=== PATIENT | male | born 1935 | race Caucasian/White ===

== ENCOUNTER 2021-02-07 05:38 | Day surgery (SDC) | payer OTHER ==
[2021-02-05 17:12] VITALS: BMI 21.6
[2021-02-07] MEDS ORDERED: KETOROLAC TROMETHAMINE 10 MG TABLET PO PRN (08:26)
[2021-02-07] MEDS ORDERED: DOCUSATE SODIUM 100 MG CAPSULE (FP) PO PRN (08:37)
[2021-02-07] MEDS ORDERED: DEXTROSE 5% IVPB SCH (10:00)
[2021-02-07] MEDS ORDERED: WATER IVPB SCH (10:00)
[2021-02-07] MEDS ORDERED: CEFAZOLIN IVPB SCH (10:00)
[2021-02-07] MEDS ORDERED: ONDANSETRON 4 MG/2 ML VIAL IVPUSH PRN (13:53)
[2021-02-07] MEDS ORDERED: LACTATED RINGERS SOLUTION 1,000 ML IV SCH (14:00)
[2021-02-07] MEDS ORDERED: PROPOFOL 20 ML ONE ×2 (14:07→15:10)
[2021-02-07] MEDS ORDERED: ceFAZolin SODIUM 1 GM VIAL IVPB ONE (14:20)
[2021-02-07] MEDS ORDERED: MEPERIDINE HCL 25 MG/ML VIAL ONE (15:39)
[2021-02-07] MEDS ORDERED: MEPERIDINE HCL 25 MG/ML VIAL IVPUSH ONE (17:47)
[2021-02-07] MEDS: predniSONE 5 MG TABLET (UD) PO SCH (18:57)
[2021-02-07] MEDS: NIFEdipine E.R. 30 MG TABLET PO SCH (18:57)
[2021-02-07] MEDS: FINASTERIDE 5 MG TABLET (FP) PO SCH (18:59)
[2021-02-07] MEDS ORDERED: DEXTROSE 5%-WATER 100 ML IVPB ONE (21:10)
[2021-02-07] MEDS ORDERED: ceFAZolin SODIUM 1 GM VIAL ONE (21:10)
[2021-02-07] MEDS ORDERED: traZODone HCL 100 MG TABLET (FP) PO SCH (22:00)
[2021-02-07] MEDS: CEFAZOLIN IVPB SCH (22:45)
[2021-02-07] MEDS: DEXTROSE 5% IVPB SCH (22:45)
[2021-02-07] MEDS: WATER IVPB SCH (22:45)
[2021-02-08] MEDS ORDERED: ceFAZolin SODIUM 1 GM VIAL ONE (06:17)
[2021-02-08] MEDS ORDERED: DEXTROSE 5%-WATER 100 ML IVPB ONE (06:18)
[2021-02-08] MEDS: DEXTROSE 5% IVPB SCH (06:25)
[2021-02-08] MEDS: WATER IVPB SCH (06:25)
[2021-02-08] MEDS: CEFAZOLIN IVPB SCH (06:25)
[2021-02-08 07:50] LABS: HEMOGLOBIN 12.7 GM/dL (11.7-16.9); MCH 29.6 pg (25.7-33.7); MCHC 33.4 g/dl (32.0-35.9); MEAN CELL VOLUME 88.6 fl (80-96); PLATELET COUNT 83 10^3/uL (134-434); RBC 4.29 M/mm3 (4.00-5.60); RDW 16.3 % (11.9-15.9); WHITE BLOOD COUNT 3.5 K/mm3 (4.0-10.0)
[2021-02-08 08:07] LABS: CALCIUM 8.1 mg/dL (8.5-10.1)
[2021-02-08 08:08] LABS: BLOOD UREA NITROGEN 16.7 mg/dL (7-18)
[2021-02-08 08:11] LABS: CREATININE 0.7 mg/dL (0.55-1.3)
[2021-02-08] MEDS: NIFEdipine E.R. 30 MG TABLET PO SCH (08:59)
[2021-02-08] MEDS: predniSONE 5 MG TABLET (UD) PO SCH (09:01)
[2021-02-08] MEDS: FINASTERIDE 5 MG TABLET (FP) PO SCH (09:04)
[2021-02-08 14:50] VITALS: BP 113/62; PULSE 60; TEMP 98.4
== END 2021-02-08 18:11 | disposition home or self-care (01) ==
LOC: JASUSAT 05:38 → J8W 18:06 → JASUSAT 02-08 18:11
PROVIDERS: ATTEND Urology
PROC: 30233R1 Transfusion of Nonautologous Platelets into Peripheral Vein, Percutaneous Approach (ICD-10-PCS; 2021-02-07)
PROC: 0VT08ZZ Resection of Prostate, Via Natural or Artificial Opening Endoscopic (ICD-10-PCS; principal; 2021-02-07 13:30)
DX: N40.1 Benign prostatic hyperplasia with lower urinary tract symptoms (principal); N13.8 Other obstructive and reflux uropathy; D69.6 Thrombocytopenia, unspecified
CPT/HCPCS: 36415; 36430; 36511; 80048; 85027; 86850; 86900; 86901; 88305-TC; 94760; P9034; P9038

== ENCOUNTER 2022-01-22 05:19 | Day surgery (SDC) | payer OTHER, BC ==
[2022-01-21 10:48] VITALS: BMI 21.9
[2022-01-22] MEDS ORDERED: PROPOFOL 40 ML ONE (07:49)
[2022-01-22] MEDS ORDERED: FENTANYL CITRATE/PF 50 MCG/ML VIAL ONE (07:49)
[2022-01-22] MEDS ORDERED: ETOMIDATE 20 MG/10 ML VIAL IVPUSH ONE (07:50)
[2022-01-22] MEDS ORDERED: LIDOCAINE HCL/PF 2% SDV 5ML VIAL ONE (07:50)
[2022-01-22] MEDS ORDERED: PHENYLEPHRINE HCL 10 MG/1 ML SINGLE DOSE VIAL ONE (07:52)
[2022-01-22] MEDS ORDERED: ePHEDrine SULFATE 50 MG/1 ML AMPULE ONE (07:56)
[2022-01-22] MEDS ORDERED: SODIUM CHLORIDE 0.9% P/F 10 ML VIAL IJ ONE ×2 (07:56→08:18)
[2022-01-22] MEDS ORDERED: ceFAZolin SODIUM 1 GM VIAL ONE (08:18)
[2022-01-22] MEDS ORDERED: ceFAZolin SODIUM 1 GM VIAL IVPB ONE (08:20)
[2022-01-22] MEDS ORDERED: ONDANSETRON 4 MG/2 ML VIAL IVPUSH PRN (09:00)
[2022-01-22] MEDS ORDERED: ACETAMINOPHEN 325 MG TABLET (FP) PO PRN (09:00)
[2022-01-22] MEDS ORDERED: LACTATED RINGERS SOLUTION 1,000 ML IV SCH (09:00)
[2022-01-22 11:09] VITALS: RESP 18
[2022-01-22 11:25] VITALS: BP 124/76; PULSE 81; TEMP 97.5
== END 2022-01-22 12:10 | disposition home or self-care (01) ==
LOC: JASU-SURG 05:19
PROVIDERS: ATTEND Urology
PROC: BV49ZZZ Ultrasonography of Prostate and Seminal Vesicles (ICD-10-PCS; 2022-01-22)
PROC: 0VB03ZX Excision of Prostate, Percutaneous Approach, Diagnostic (ICD-10-PCS; principal; 2022-01-22 08:00)
DX: C61 Malignant neoplasm of prostate (principal)
CPT/HCPCS: 76998-TC; 88305-TC; 94760

== ENCOUNTER 2022-01-22 15:38 | Emergency (ER) | payer OTHER, BC ==
[2022-01-22 15:44] VITALS: BP 121/67; PULSE 89; RESP 18; TEMP 98.9; BMI 21.7
[2022-01-22 17:17] LABS: HEMATOCRIT 40.8 % (35.4-49); HEMOGLOBIN 13.2 GM/dL (11.7-16.9); MCH 28.2 pg (25.7-33.7); MCHC 32.4 g/dl (32.0-35.9); MEAN PLT VOLUME 10.6 fl (7.5-11.1); PLATELET COUNT 87 10^3/uL (134-434); RDW 16.8 % (11.9-15.9); WHITE BLOOD COUNT 5.2 K/mm3 (4.0-10.0)
[2022-01-22 17:20] LABS: EPI CELLS 3 /uL (0-25.1); HYALINE CASTS 0 /uL (0-3.1); URINE APPEARANCE CLOUDY; URINE BACTERIA 3 /uL (0-1359); URINE BILIRUBIN NEGATIVE (NEGATIVE); URINE COLOR YELLOW; URINE GLUCOSE (UA) NEGATIVE (NEGATIVE); URINE KETONE NEGATIVE (NEGATIVE); URINE LEUK ESTERASE NEGATIVE (NEGATIVE); URINE NITRITE NEGATIVE (NEGATIVE); URINE PROTEIN 1+ (NEGATIVE); URINE RBC 5912 /uL (0-23.9); URINE WBC 10 /uL (0-25.8)
[2022-01-22 17:26] LABS: INR 1.27 (0.83-1.09); PROTHROMBIN TIME (PATIENT) 14.6 SEC (9.7-13.0)
[2022-01-22 17:29] LABS: ACTIVATED PTT 31.5 SECONDS (25.2-36.5)
[2022-01-22 17:44] LABS: CALCIUM 8.8 mg/dL (8.5-10.1)
[2022-01-22 17:45] LABS: ALBUMIN 3.8 g/dl (3.4-5.0)
[2022-01-22 17:48] LABS: CREATININE 0.9 mg/dL (0.55-1.3)
[2022-01-22 17:49] LABS: BILIRUBIN,TOTAL 0.5 mg/dL (0.2-1); TOT PROT 6.6 g/dl (6.4-8.2)
[2022-01-22 18:08] LABS: ANISOCYTOSIS 1+; MACROCYTOSIS 0; PLATELET ESTIMATE DECREASED
[2022-01-22] MEDS ORDERED: CEFTRIAXONE 1,000 MG in DEXTROSE 5%-WATER - 50 ML IVPB ONE (18:58)
[2022-01-22] MEDS ORDERED: CEFTRIAXONE 1 GM/50 ML BAG ONE (19:01)
== END 2022-01-22 20:00 | disposition home or self-care (01) ==
LOC: JER 15:38
DX: R50.82 Postprocedural fever (principal)
CPT/HCPCS: 0241U-QW; 36415; 36430; 71045-TC-FY; 80053; 81003; 83605; 85025; 85610; 85730; 87040; 87086; 93005; 93010; 99285-25; P9037

== ENCOUNTER 2022-10-25 15:44 | Inpatient (IN) | payer OTHER, BC ==
[2022-10-25] MEDS ORDERED: ONDANSETRON 4 MG/2 ML VIAL IVPUSH ONE ×2 (16:07→18:13)
[2022-10-25] MEDS ORDERED: MAG HYDROX/AL HYDROX/SIMETH 30 ML UNIT-DOSE CUP PO ONE (16:07)
[2022-10-25] MEDS ORDERED: SODIUM CHLORIDE 1,000 ML IV STA ×2 (16:07→19:35)
[2022-10-25] MEDS ORDERED: morphine CARPU-JECT 4 MG/1 ML DISP.SYRIN IVPUSH ONE (16:08)
[2022-10-25] MEDS ORDERED: FAMOTIDINE 20 MG/50 ML IVPB 20 MG/50 ML MG IVPB ONE ×2 (16:16→16:17)
[2022-10-25] MEDS ORDERED: ONDANSETRON 4 MG/2 ML VIAL ONE ×2 (16:17→18:24)
[2022-10-25] MEDS ORDERED: morphine SULFATE 4 MG/ML VIAL ONE ×2 (16:17→23:13)
[2022-10-25 16:44] VITALS: BMI 21.4
[2022-10-25 17:02] LABS: BASO % 0.9 % (0-2.0); EOS % 0.2 % (0-4.5); HEMATOCRIT 46.3 % (35.4-49); HEMOGLOBIN 14.6 GM/dL (11.7-16.9); MCH 27.9 pg (25.7-33.7); MCHC 31.5 g/dl (32.0-35.9); MEAN CELL VOLUME 88.7 fl (80-96); MEAN PLT VOLUME 11.8 fl (7.5-11.1); MONO % 11.2 % (3.8-10.2); NEUT % 78.7 % (42.8-82.8); PLATELET COUNT 62 10^3/uL (134-434); RBC 5.23 M/mm3 (4.00-5.60); RDW 16.8 % (11.9-15.9); WHITE BLOOD COUNT 4.4 K/mm3 (4.0-10.0)
[2022-10-25 17:09] LABS: POTASSIUM 4.8 mmol/L (3.5-5.1)
[2022-10-25 17:12] LABS: ALBUMIN 4.6 g/dl (3.4-5.0); BLOOD UREA NITROGEN 16.5 mg/dL (7-18); CALCIUM 10.1 mg/dL (8.5-10.1)
[2022-10-25 17:16] LABS: CREATININE 0.9 mg/dL (0.55-1.3)
[2022-10-25 17:17] LABS: BILIRUBIN,TOTAL 0.7 mg/dL (0.2-1); TOT PROT 7.4 g/dl (6.4-8.2)
[2022-10-25 17:24] LABS: LACTIC ACID 3.4 mmol/L (0.4-2.0)
[2022-10-25 17:38] LABS: INR 1.15 (0.83-1.09); PROTHROMBIN TIME (PATIENT) 13.3 SEC (9.7-13.0)
[2022-10-25 17:42] LABS: ACTIVATED PTT 31.1 SECONDS (25.2-36.5)
[2022-10-25 19:11] LABS: CALCIUM 9.3 mg/dL (8.5-10.1); POTASSIUM 4.1 mmol/L (3.5-5.1)
[2022-10-25 19:13] LABS: BLOOD UREA NITROGEN 16.8 mg/dL (7-18)
[2022-10-25 19:15] LABS: CREATININE 0.7 mg/dL (0.55-1.3)
[2022-10-25 19:19] LABS: LACTIC ACID 2.9 mmol/L (0.4-2.0)
[2022-10-25 23:50] LABS: PH,URINE 5.5 (5.0-8.0); URINE APPEARANCE CLEAR; URINE BILIRUBIN NEGATIVE (NEGATIVE); URINE COLOR YELLOW; URINE GLUCOSE (UA) NEGATIVE (NEGATIVE); URINE KETONE TRACE (NEGATIVE); URINE LEUK ESTERASE NEGATIVE (NEGATIVE); URINE NITRITE NEGATIVE (NEGATIVE); URINE PROTEIN NEGATIVE (NEGATIVE); URINE UROBILINOGEN 0.2 mg/dL (0.2-1.0)
[2022-10-26] MEDS ORDERED: ONDANSETRON 4 MG/2 ML VIAL IVPUSH PRN (00:03)
[2022-10-26] MEDS ORDERED: SODIUM CHLORIDE 1,000 ML IV SCH (00:15)
[2022-10-26] MEDS: SODIUM CHLORIDE 1,000 ML IV SCH ×2 (02:18→14:05)
[2022-10-26 08:55] LABS: HEMOGLOBIN 12.9 GM/dL (11.7-16.9); MCH 28.4 pg (25.7-33.7); MCHC 32.3 g/dl (32.0-35.9); MEAN CELL VOLUME 87.7 fl (80-96); MEAN PLT VOLUME 11.3 fl (7.5-11.1); RBC 4.56 M/mm3 (4.00-5.60); RDW 16.8 % (11.9-15.9); WHITE BLOOD COUNT 12.7 K/mm3 (4.0-10.0)
[2022-10-26 09:08] LABS: PLATELET COUNT 48 10^3/uL (134-434)
[2022-10-26 09:12] LABS: POTASSIUM 4.5 mmol/L (3.5-5.1)
[2022-10-26 09:19] LABS: BLOOD UREA NITROGEN 19.8 mg/dL (7-18); CALCIUM 8.8 mg/dL (8.5-10.1)
[2022-10-26 09:23] LABS: CREATININE 0.9 mg/dL (0.55-1.3)
[2022-10-26 09:25] LABS: TOT PROT 5.6 g/dl (6.4-8.2)
[2022-10-26 09:28] LABS: ALBUMIN 3.6 g/dl (3.4-5.0)
[2022-10-26] MEDS: metoPROLOL SUCCINATE 25 MG TAB.SR.24H (FP) PO SCH (09:58)
[2022-10-26] MEDS ORDERED: ACETAMINOPHEN 1000 MG/100 ML BAG IVPB ONE (11:15)
[2022-10-27] MEDS: SODIUM CHLORIDE 1,000 ML IV SCH (01:00)
[2022-10-27] MEDS ORDERED: ENOXAPARIN NA (PORCINE) 40 MG/0.4 ML DISP.SYRIN SQ SCH (10:00)
[2022-10-27] MEDS: metoPROLOL SUCCINATE 25 MG TAB.SR.24H (FP) PO SCH ×2 (11:02→11:06)
[2022-10-27] MEDS ORDERED: ACETAMINOPHEN 1000 MG/100 ML BAG IVPB PRN (11:48)
[2022-10-27 12:56] LABS: HEMATOCRIT 39.4 % (35.4-49); HEMOGLOBIN 12.4 GM/dL (11.7-16.9); MCH 28.3 pg (25.7-33.7); MCHC 31.6 g/dl (32.0-35.9); MEAN CELL VOLUME 89.7 fl (80-96); MEAN PLT VOLUME 13.5 fl (7.5-11.1); PLATELET COUNT 45 10^3/uL (134-434); RBC 4.39 M/mm3 (4.00-5.60); RDW 17.3 % (11.9-15.9); WHITE BLOOD COUNT 11.7 K/mm3 (4.0-10.0)
[2022-10-27] MEDS: DEXTROSE 5%-NORMAL SALINE 1,000 ML IV SCH (12:56)
[2022-10-27 13:08] LABS: ALBUMIN 3.5 g/dl (3.4-5.0)
[2022-10-27 13:09] LABS: BLOOD UREA NITROGEN 26.6 mg/dL (7-18); CALCIUM 8.8 mg/dL (8.5-10.1); MAGNESIUM 2.1 mg/dL (1.8-2.4)
[2022-10-27 13:12] LABS: CREATININE 0.7 mg/dL (0.55-1.3)
[2022-10-27 13:13] LABS: BILIRUBIN,TOTAL 0.8 mg/dL (0.2-1); TOT PROT 5.7 g/dl (6.4-8.2)
[2022-10-27 13:27] LABS: PHOSPHOROUS 2.4 mg/dL (2.5-4.9)
[2022-10-27] MEDS ORDERED: SODIUM PHOSPHATE - 15 MM in SODIUM CHLORIDE 250 ML IVPB ONE (16:04)
[2022-10-27] MEDS ORDERED: FLUTICASONE PROP 0.05% 16 GM NASAL SPRAY NS PRN ×2 (17:08→18:03)
[2022-10-27] MEDS: PHENOL 177 ML SPRAY BOTTLE MM PRN ×2 (17:44→23:45)
[2022-10-27] MEDS: LATANOPROST 0.005% OPHTH SOLN 2.5ML BOTTLE OD SCH (23:26)
[2022-10-28] MEDS: DEXTROSE 5%-NORMAL SALINE 1,000 ML IV SCH ×2 (00:13→15:26)
[2022-10-28 11:06] LABS: HEMATOCRIT 34.8 % (35.4-49); HEMOGLOBIN 11.1 GM/dL (11.7-16.9); MCH 28.4 pg (25.7-33.7); MEAN CELL VOLUME 88.6 fl (80-96); MEAN PLT VOLUME 11.9 fl (7.5-11.1); PLATELET COUNT 37 10^3/uL (134-434); RBC 3.93 M/mm3 (4.00-5.60); WHITE BLOOD COUNT 5.6 K/mm3 (4.0-10.0)
[2022-10-28 11:41] LABS: ANISOCYTOSIS 2+; MACROCYTOSIS 0
[2022-10-28 12:20] LABS: CALCIUM 8.1 mg/dL (8.5-10.1); MAGNESIUM 2.2 mg/dL (1.8-2.4)
[2022-10-28 12:21] LABS: BLOOD UREA NITROGEN 16.9 mg/dL (7-18); POTASSIUM 3.4 mmol/L (3.5-5.1)
[2022-10-28 12:24] LABS: CREATININE 0.6 mg/dL (0.55-1.3)
[2022-10-28] MEDS ORDERED: NAPH,MB-DB/K PH,MBDB POWDER PACKET PO ONE (13:54)
[2022-10-28] MEDS ORDERED: POTASSIUM CHLORIDE ORAL LIQUID 20 MEQ/15 ML PO ONE (13:55)
[2022-10-28] MEDS: LATANOPROST 0.005% OPHTH SOLN 2.5ML BOTTLE OD SCH (21:21)
[2022-10-29 10:25] LABS: HEMATOCRIT 39.7 % (35.4-49); HEMOGLOBIN 12.7 GM/dL (11.7-16.9); MCH 28.5 pg (25.7-33.7); MEAN CELL VOLUME 89.1 fl (80-96); MEAN PLT VOLUME 11.7 fl (7.5-11.1); PLATELET COUNT 44 10^3/uL (134-434); RBC 4.45 M/mm3 (4.00-5.60); WHITE BLOOD COUNT 4.7 K/mm3 (4.0-10.0)
[2022-10-29 10:33] LABS: POTASSIUM 3.4 mmol/L (3.5-5.1)
[2022-10-29 10:41] LABS: BLOOD UREA NITROGEN 10.1 mg/dL (7-18)
[2022-10-29 10:43] LABS: CALCIUM 8.4 mg/dL (8.5-10.1)
[2022-10-29 10:44] LABS: MAGNESIUM 1.9 mg/dL (1.8-2.4)
[2022-10-29 10:45] LABS: CREATININE 0.7 mg/dL (0.55-1.3); PHOSPHOROUS 2.1 mg/dL (2.5-4.9)
[2022-10-29 11:01] LABS: ANISOCYTOSIS 1+; MACROCYTOSIS 0
[2022-10-29] MEDS ORDERED: POTASSIUM CHLORIDE TABS 20 MEQ TABLET.ER (FP) PO ONE (14:57)
[2022-10-29] MEDS ORDERED: NAPH,MB-DB/K PH,MBDB POWDER PACKET PO ONE ×2 (14:57→19:30)
[2022-10-29 20:05] VITALS: RESP 18
[2022-10-29] MEDS: LATANOPROST 0.005% OPHTH SOLN 2.5ML BOTTLE OD SCH (21:46)
[2022-10-30 03:49] VITALS: BP 129/65; PULSE 53; TEMP 99.3
[2022-10-30 08:28] LABS: HEMATOCRIT 37.3 % (35.4-49); HEMOGLOBIN 11.8 GM/dL (11.7-16.9); MCH 28.2 pg (25.7-33.7); MCHC 31.7 g/dl (32.0-35.9); MEAN PLT VOLUME 11.7 fl (7.5-11.1); PLATELET COUNT 46 10^3/uL (134-434); RBC 4.19 M/mm3 (4.00-5.60); RDW 16.4 % (11.9-15.9)
[2022-10-30 08:30] LABS: WHITE BLOOD COUNT 4.8 K/mm3 (4.0-10.0)
[2022-10-30 08:43] LABS: POTASSIUM 3.8 mmol/L (3.5-5.1)
[2022-10-30 08:45] LABS: CALCIUM 8.2 mg/dL (8.5-10.1)
[2022-10-30 08:49] LABS: BLOOD UREA NITROGEN 8.6 mg/dL (7-18)
[2022-10-30 08:50] LABS: MAGNESIUM 1.7 mg/dL (1.8-2.4); PHOSPHOROUS 3.3 mg/dL (2.5-4.9)
[2022-10-30 08:54] LABS: CREATININE 0.6 mg/dL (0.55-1.3)
[2022-10-30] MEDS ORDERED: MAGNESIUM OXIDE 400 MG TABLET (FP) PO ONE (15:00)
== END 2022-10-30 15:18 | disposition home or self-care (01) | DRG 389 ==
LOC: JER 15:44 → JERBED 19:03 → J6S 23:55
PROVIDERS: ADMIT Internal Medicine; ATTEND Internal Medicine
DX: K56.690 Other partial intestinal obstruction (principal); E87.20 Acidosis, unspecified; D69.6 Thrombocytopenia, unspecified; C61 Malignant neoplasm of prostate; Z85.72 Personal history of non-Hodgkin lymphomas
CPT/HCPCS: 0241U-QW; 36415; 71045-TC-FY; 74018-TC-FY; 74177-TC; 80048; 80053; 81003; 83605; 83690; 83735; 84100; 84484; 85025; 85027; 85610; 85730; 86850; 86900; 86901; 87086; 93005; 93010; 97116-GP; 97162-GP; 99285-25